=== PATIENT | male | born 1975 | race Caucasian/White ===

== ENCOUNTER 2022-07-18 08:08 | Day surgery (SDC) | payer BC ==
[2022-07-14 12:31] VITALS: BMI 26.1
[2022-07-18 08:35] VITALS: RESP 18; TEMP 97.9
[2022-07-18] MEDS ORDERED: PROPOFOL 80 ML ONE (09:22)
[2022-07-18 10:14] VITALS: BP 101/56; PULSE 56
== END 2022-07-18 10:20 | disposition home or self-care (01) ==
LOC: FASU-ENDO 08:08
PROVIDERS: ATTEND Internal Medicine Gastroenterology
PROC: 0DBH8ZX Excision of Cecum, Via Natural or Artificial Opening Endoscopic, Diagnostic (ICD-10-PCS; principal; 2022-07-18 09:29)
DX: Z12.11 Encounter for screening for malignant neoplasm of colon (principal); D12.0 Benign neoplasm of cecum
CPT/HCPCS: 88305-TC